=== PATIENT | male | born 1945 | race Caucasian/White ===

== ENCOUNTER → 2016-09-10 | Outpatient (CLI) | payer MEDICARE ==
[~2016-09-10] MED LIST: CARBIDOPA-LEVO1 TAB PO; CELEXA20 MG PO; CRESTOR10 MG PO; ELDEPRYL5 MG PO; INDERAL60 MG PO; MIRAPEX PO; PLAVIX PO; PROPRANOLOL PO
--- NOTE | ~2016-09-10 | CT138 ---
[facility] A Service of [facility] [place] [place] RADIOLOGY TEXT RESULTS PATIENT: LISA REAVES LOCATION: [facility] : 47 UNIT #: [id number] AGE: [address]: Lisa Burroughs MD SEX: M ORDER DR: [id number] [facility]. [place], [place] [address] [id number] O MR#: [id number] Acc #: [id number] NAME: LISA REAVES : 1945 SEX: M STUDY DATE/TIME: 09/10/2016 9:39 UNIT: [facility] ROOM: STUDY DESCRIPTION: CT Lung screening initial Attending Physician: Lisa Burroughs Jr., M.D. Referring Physician: Lisa Burroughs Jr., M.D. Ordering Physician: Lisa Burroughs Jr., M.D. Primary Care Physician: Lisa Burroughs Jr., M.D. MEDICAL IMAGING REPORT This report is preliminary unless electronic signature is present EXAM CT chest. INDICATION Lung cancer screening. 71-year-old male is a former smoker with a 40 pack-year history of smoking. 10 years of smoking cessation. TECHNIQUE CT of the thorax without contrast. Coronal and sagittal reconstructions were obtained. The exam was performed as a low-dose chest CT utilizing lung cancer screening protocol. CTDI volume 3 mGy. DLP 94.08 mGy-cm. This CT exam was performed with one or more of the following radiation dose reduction techniques: automatic exposure control, adjustment of mA and/or kV according to patient size, and iterative reconstruction. COMPARISON Chest radiograph dated 09/01/2013. FINDINGS There is a noncalcified pulmonary nodule measuring 0.6 x 0.5 x 0.4 cm (mean 0.5 cm) in the perihilar region of the right middle lobe. This is likely a benign noncalcified granuloma. There are several calcified granulomas in both lungs. There is background moderate emphysema. Central airways are patent. No pericardial or pleural effusion. Thoracic aorta is normal in caliber. Several benign cysts in the liver. No acute osseous abnormalities. [facility] A Service of [facility] & [facility] RADIOLOGY TEXT RESULTS PATIENT: LISA REAVES LOCATION: [facility] : 47 UNIT #: [id number] AGE: [address]: Lisa Burroughs MD SEX: M ORDER DR: IMPRESSION 1. Benign lung cancer screening. There is a small 0.5 cm pulmonary nodule in the right middle lobe. This is considered benign when using the ACR Lung-RADS classification system. 2. Emphysema. 3. ACR Lung-RADS classification 2: Benign examination. RECOMMENDATIONS Annual lung cancer screening with a low-dose chest CT. Dictated by... Behzad Nichols M.D. THIS IS AN ELECTRONICALLY VERIFIED REPORT Behzad Nichols M.D. at 09/10/2016 4:42 PM AMARJIT/silvana TD: 09/10/2016 12:58 JOB #: [id number] MEDICAL IMAGING REPORT Page 1 of 1 COPY
== END | disposition home or self-care (01) ==
LOC: CCAT 08:48
DX: Z87.891 Personal history of nicotine dependence (principal); R91.1 Solitary pulmonary nodule; J43.9 Emphysema, unspecified
CPT/HCPCS: G0297